=== PATIENT | male | born 1970 | race Caucasian/White ===

== ENCOUNTER 2020-09-02 21:41 | Emergency (ER) | payer SELFPAY ==
[~2020-09-02] VITALS: Ht 188 cm; Wt 87.9 kg
[2020-09-02 21:47] VITALS: BP 129/76
[2020-09-02] MEDS ORDERED: CLOTRIMAZOLE CRM 1%, 15GM TP ONE (23:30)
== END 2020-09-03 00:07 | disposition home or self-care (01) ==
LOC: ED 23:30
DX: B35.3 Tinea pedis (principal); F17.210 Nicotine dependence, cigarettes, uncomplicated
CPT/HCPCS: 99281; 99406